=== PATIENT | male | born 1980 | race Two or more races ===

== ENCOUNTER 2021-10-20 23:27 | Emergency (ER) | payer OTHER ==
[~2021-10-20] VITALS: Ht 175.3 cm; Wt 68.0 kg
[2021-10-21] MEDS ORDERED: KETO10TA2 PO (04:29)
== END 2021-10-21 05:08 | disposition home or self-care (01) ==
LOC: ER 23:27
DX: R51.9 Headache, unspecified (principal); R42 Dizziness and giddiness